=== PATIENT | female | born 2000 | race Two or more races ===

== ENCOUNTER 2021-01-14 23:49 | Inpatient (IN) | payer OTHER ==
[~2021-01-14] VITALS: Ht 149.9 cm; Wt 71.8 kg
[2021-01-15] VITALS (47 sets, daily range): BP systolic 94–145; BP diastolic 52–91
[2021-01-15] MEDS ORDERED: BUTORPHANOL 2 MG/ML INJ (J0595) IV PRN (01:30)
[2021-01-15] MEDS: LR 1,000 ML IV SCH ×5 (01:30→17:16)
[2021-01-15] MEDS ORDERED: PROMETHAZINE INJ 25 MG/ML VIAL (J2550) IV PRN (01:30)
[2021-01-15] MEDS ORDERED: LIDOCAINE 1% MDV 20ML VIAL INFIL PRN (01:30)
[2021-01-15] MEDS ORDERED: OXYTOCIN DRIP 30 UNITS in IV 1 EA IV PRN ×2 (01:30→19:55)
[2021-01-15 02:11] LABS: HEMATOCRIT 44.3 % (36.0-47.0); HEMOGLOBIN 14.5 g/dl (12.0-15.5); MEAN CORPUSCULAR HEMOGLOBIN 28.6 pg (27.0-33.0); MEAN CORPUSCULAR HGB CONC 32.7 g/dl (32.0-36.5); MEAN CORPUSCULAR VOLUME 87.4 fl (80.0-96.0); PLATELET COUNT, AUTOMATED 263 10^3/uL (150-450); RED BLOOD COUNT 5.07 10^6/uL (4.00-5.40); WHITE BLOOD COUNT 14.6 10^3/uL (4.0-10.0)
[2021-01-15] MEDS ORDERED: FENTANYL 2MCG/ML ROPIVACAINE 0.2% IN 0.9% NACL 100ML IVBAG As Ordered ONE (04:09)
[2021-01-15] MEDS ORDERED: REFRIGERATOR IV KEYS XX PRN (04:34)
[2021-01-15] MEDS ORDERED: NALOXONE INJ 0.4MG/1ML VIAL (J2310 PER 1MG) IV PRN (04:34)
[2021-01-15] MEDS ORDERED: LACTATED RINGER'S 1000 ML IV PRN (04:34)
[2021-01-15] MEDS ORDERED: ONDANSETRON 4MG/2ML VIAL IV PRN (04:34)
[2021-01-15] MEDS ORDERED: EPIDURAL/PCA KEYS XX PRN (04:34)
[2021-01-15] MEDS ORDERED: diphenhydrAMINE 50MG/ML VIAL (J1200) IV PRN (04:34)
[2021-01-15] MEDS ORDERED: ePHEDrine SULFATE 25 MG/5 ML(5MG/ML) SYRINGE IV PRN (04:34)
[2021-01-15] MEDS ORDERED: EPIDURAL COMMENT XX SCH (04:34)
[2021-01-15] MEDS: FENTANYL/ROPIVACAINE/NACL BAG 100 ML EPIDURAL SCH ×2 (06:42→15:25)
[2021-01-15] MEDS ORDERED: OXYTOCIN DRIP 30 UNITS in IV 1 EA IV SCH ×2 (13:55→18:35)
[2021-01-15] MEDS ORDERED: DIBUCAINE 1% OINTMENT 30GM TOP PRN (18:35)
[2021-01-15] MEDS ORDERED: IBUPROFEN 800 MG TAB PO PRN (18:35)
[2021-01-15] MEDS ORDERED: DOCUSATE SODIUM 100MG CAPSULE PO PRN (18:35)
[2021-01-15] MEDS ORDERED: MOM 30ML SUSPENSION UDC PO PRN (18:35)
[2021-01-15] MEDS ORDERED: METHYLERGONOVINE MALEATE 0.2 MG TAB PO PRN (18:35)
[2021-01-16 06:00] VITALS: BP 108/53
[2021-01-16] MEDS: PRENATAL VITAMINS CHEWABLE TABLET PO SCH (09:41)
[2021-01-16 18:00] VITALS: BP 102/58
[2021-01-16] MEDS: ACETAMINOPHEN 500 MG TAB PO PRN (22:06)
[2021-01-17] MEDS: ACETAMINOPHEN 500 MG TAB PO PRN (05:55)
[2021-01-17 06:00] VITALS: BP 101/57
[2021-01-17] MEDS: PRENATAL VITAMINS CHEWABLE TABLET PO SCH (08:50)
== END 2021-01-17 12:27 | disposition home or self-care (01) | DRG 807 ==
LOC: M LDO 23:49 → M LDI 01-15 01:23 → M OBS 01-15 21:33
PROVIDERS: ADMIT Obstetrics & Gynecology; ATTEND Obstetrics & Gynecology
PROC: 10E0XZZ Delivery of Products of Conception, External Approach (ICD-10-PCS; principal; 2021-01-15)
PROC: 0HQ9XZZ Repair Perineum Skin, External Approach (ICD-10-PCS; 2021-01-15)
PROC: 10907ZC Drainage of Amniotic Fluid, Therapeutic from Products of Conception, Via Natural or Artificial Opening (ICD-10-PCS; 2021-01-15)
DX: O48.0 Post-term pregnancy (principal); Z37.0 Single live birth; Z3A.40 40 weeks gestation of pregnancy; O69.1XX0 Labor and delivery complicated by cord around neck, with compression, not applicable or unspecified; O70.0 First degree perineal laceration during delivery

== ENCOUNTER 2021-01-20 19:15 | Emergency (ER) | payer OTHER ==
[~2021-01-20] VITALS: Ht 149.9 cm; Wt 68.0 kg
[2021-01-20] MEDS ORDERED: ACET-907 PO (19:33)
[2021-01-20] MEDS ORDERED: CEPHALEXIN 500 MG CAP PO ONE (21:20)
[2021-01-20] MEDS ORDERED: CEPH500C PO (21:21)
[2021-01-20 21:37] VITALS: BP 114/60
== END 2021-01-20 22:06 | disposition home or self-care (01) ==
LOC: M ED 19:15
DX: O99.893 Other specified diseases and conditions complicating puerperium (principal); N39.0 Urinary tract infection, site not specified

== ENCOUNTER 2021-02-24 18:13 | Emergency (ER) | payer OTHER ==
[~2021-02-24] VITALS: Ht 149.9 cm; Wt 68.2 kg
[~2021-02-24 18:13] MED LIST: ACET-907 PO; CEPH500C PO
[2021-02-24 18:37] VITALS: BP 86/64
== END 2021-02-25 00:58 | disposition left against medical advice (07) ==
LOC: M ED 18:13
DX: Z53.29 Procedure and treatment not carried out because of patient's decision for other reasons (principal)